=== PATIENT | female | born 1970 | race Caucasian/White ===

== ENCOUNTER 2023-08-24 10:08 | Day surgery (SDC) | payer BC ==
[~2023-08-24] VITALS: Ht 160 cm; Wt 61.1 kg
[~2023-08-24 10:08] MED LIST: ATOR1TAB21 PO; CARB300C6 PO; CLOP75TA2 PO; GNP45TAB2 PO; HYDR200T46 PO; LABE100T6 PO; LISI5TAB11 PO; MYCO500T PO; RA T500C2 PO; VITA100093 PO
[2023-08-24] MEDS: NS 1,000 ML IV ONE (11:01)
[2023-08-24 11:04] VITALS: TEMP 97.9
[2023-08-24 13:00] VITALS: BP 113/70; O2SAT 98
== END 2023-08-24 13:11 | disposition home or self-care (01) ==
LOC: M OPP 10:08
PROVIDERS: ATTEND Internal Medicine Gastroenterology
DX: Z12.11 Encounter for screening for malignant neoplasm of colon (principal); Z83.718 Family history of other colon polyps; K64.4 Residual hemorrhoidal skin tags; K64.8 Other hemorrhoids; Q43.8 Other specified congenital malformations of intestine; Z79.01 Long term (current) use of anticoagulants; Z79.02 Long term (current) use of antithrombotics/antiplatelets; Z79.899 Other long term (current) drug therapy; Z88.5 Allergy status to narcotic agent; Z88.6 Allergy status to analgesic agent; Z91.041 Radiographic dye allergy status; Z86.73 Personal history of transient ischemic attack (TIA), and cerebral infarction without residual deficits